=== PATIENT | male | born 1970 | race Caucasian/White ===

== ENCOUNTER 2016-11-21 09:55 | Observation (INO) | payer MEDICAID, OTHER ==
[2016-11-21] VITALS (9 sets, daily range): BP systolic 104–142; BP diastolic 63–81; PULSE 74–89; RESP 15–20; TEMP 98.3–98.8; O2SAT 96–99
[~2016-11-21] VITALS: Ht 175.3 cm; Wt 71.0 kg
[~2016-11-21 09:55] MED LIST: OXYC-103 PO; VICOTAB4 PO; Z.0.NO CURRENT MEDS
[2016-11-21] MEDS ORDERED: SODIUM CHLORIDE 0.9% FLUSH 10 ML FLUSH IVF PRN (10:45)
[2016-11-21] MEDS ORDERED: ASPIRIN 81 MG CHEW TAB PO ONE (10:45)
--- NOTE | 2016-11-21 10:50 | PD ---
HPI Chief Complaint: Chest Pain Time Seen by Provider: 10:39 Travel History International Travel<30 days: No Contact w/Intl Traveler<30days: No Traveled to known affect area: No History of Present Illness HPI 46-year-old male here for evaluation of chest pain. Patient reports one episode of chest pain about a week ago described as an ache, substernal/left- sided. He states the pain resolved on its own, then returned yesterday evening , waking him up from sleep. Pain has been constant since this time, is left- sided chest pain, described as sharp/ache, radiates up into his jaw/left neck as well as left arm. No modifying factors. Intermittent dyspnea. No hemoptysis. No history of cardiac disease. No family history of cardiac disease. He quit smoking cigarettes a couple years ago after smoking on and off for about 5-6 years. No illicit drug use. PFSH Past Medical History Blood Disorders: No Cancer: No Cardiovascular Problems: No Diabetes: No Endocrine: No Glaucoma: No Genitourinary: No Hepatitis: No Hiatal Hernia: No Hypertension: No Immune Disorder: No Musculoskeletal: No Neurologic: No Psychiatric: No Reproductive: No Respiratory: No Immunizations Current: No Thyroid Disease: No Tetanus Vaccination: > 5 Years Influenza Vaccination: No Past Surgical History Abdominal Surgery: No Cardiac Surgery: No Ear Surgery: No Endocrine Surgery: No Eye Surgery: Yes (LEFT EYE- METAL IN THE EYE) Genitourinary Surgery: No Gynecologic Surgery: No Oral Surgery: No Pacemaker: No Thoracic Surgery: No Other Surgery: Yes (LEFT ELBOW-REPAIR, L HAND SURGERY ) Social History Alcohol Use: Yes (OCCASSIONAL) Tobacco Use: No (QUIT 2 YEARS AGO ) Substance Use: No Allergies-Medications (Allergen,Severity, Reaction): Coded Allergies: No Known Allergies (Verified , 11/21/16) Reported Meds & Prescriptions Reported Meds & Active Scripts Active No Active Prescriptions or Reported Medications Review of Systems Except as stated in HPI: all other systems reviewed are Neg Physical Exam Narrative GENERAL: Well-developed, well-nourished, comfortable, no acute distress. SKIN: Focused skin assessment warm/dry. HEAD: Atraumatic. Normocephalic. EYES: Eye patch on left eye. ENT: No nasal bleeding or discharge. Mucous membranes pink and moist. NECK: Trachea midline. No JVD. CARDIOVASCULAR: Regular rate and rhythm. Distal pulses brisk and equal bilaterally. RESPIRATORY: No accessory muscle use. Clear to auscultation. Breath sounds equal bilaterally. GASTROINTESTINAL: Abdomen soft, non-tender, nondistended. MUSCULOSKELETAL: No clubbing. No cyanosis. No edema. NEUROLOGICAL: Awake and alert. No obvious cranial nerve deficits. Motor grossly within normal limits. Normal speech. PSYCHIATRIC: Appropriate mood and affect; insight and judgment normal. Data Data Last Documented VS Vital Signs Date Time Temp Pulse Resp B/P Pulse Ox O2 Delivery O2 Flow Rate FiO2 11/21/16 11:50 82 16 104/64 98 Room Air 11/21/16 09:57 98.8 Orders Electrocardiogram (11/21/16 ) Electrocardiogram (11/21/16 10:40) Basic Metabolic Panel (Bmp) (11/21/16 10:40) Ckmb (Isoenzyme) Profile (11/21/16 10:40) Complete Blood Count With Diff (11/21/16 10:40) D-Dimer (11/21/16 10:40) Magnesium (Mg) (11/21/16 10:40) Prothrombin Time / Inr (Pt) (11/21/16 10:40) Act Partial Throm Time (Ptt) (11/21/16 10:40) Troponin I (11/21/16 10:40) Chest, Single Ap (11/21/16 10:40) Ecg Monitoring (11/21/16 10:40) Bilateral Bp Monitoring (11/21/16 10:40) Iv Access Insert/Monitor (11/21/16 10:40) Oximetry (11/21/16 10:40) Aspirin Chew (Aspirin Chew) (11/21/16 10:45) Sodium Chloride 0.9% Flush (Ns Flush) (11/21/16 10:45) Nitroglycerin Sl (Nitrostat Sl) (11/21/16 10:45) Ct Pulmonary Angiogram (11/21/16 11:27) Iohexol 350 Inj (Omnipaque 350 Inj) (11/21/16 12:49) Labs Laboratory Tests Test 11/21/16 10:30 White Blood Count 4.8 TH/MM3 Red Blood Count 5.04 MIL/MM3 Hemoglobin 15.0 GM/DL Hematocrit 45.0 % Mean Corpuscular Volume 89.4 FL Mean Corpuscular Hemoglobin 29.7 PG Mean Corpuscular Hemoglobin 33.2 % Concent Red Cell Distribution Width 14.1 % Platelet Count 146 TH/MM3 Mean Platelet Volume 8.3 FL Neutrophils (%) (Auto) 76.0 % Lymphocytes (%) (Auto) 16.5 % Monocytes (%) (Auto) 7.1 % Eosinophils (%) (Auto) 0.0 % Basophils (%) (Auto) 0.4 % Neutrophils # (Auto) 3.6 TH/MM3 Lymphocytes # (Auto) 0.8 TH/MM3 Monocytes # (Auto) 0.3 TH/MM3 Eosinophils # (Auto) 0.0 TH/MM3 Basophils # (Auto) 0.0 TH/MM3 CBC Comment DIFF FINAL Differential Comment Prothrombin Time 12.6 SEC Prothromb Time International 1.1 RATIO Ratio Activated Partial 28.9 SEC Thromboplast Time D-Dimer Quantitative (PE/DVT) 1.32 MG/L FEU Sodium Level 138 MEQ/L Potassium Level 3.9 MEQ/L Chloride Level 103 MEQ/L Carbon Dioxide Level 25.4 MEQ/L Anion Gap 10 MEQ/L Blood Urea Nitrogen 18 MG/DL Creatinine 0.98 MG/DL Estimat Glomerular Filtration 83 ML/MIN Rate Random Glucose 98 MG/DL Calcium Level 8.4 MG/DL Magnesium Level 2.1 MG/DL Total Creatine Kinase 93 U/L Troponin I LESS THAN 0.02 NG/ML MDM Medical Decision Making Medical Screen Exam Complete: Yes Emergency Medical Condition: Yes Interpretation(s) EKG: Sinus, rate 75, normal axis, normal intervals, no acute ischemic abnormality. Differential Diagnosis ACS, pneumothorax, pericarditis, PE, pneumonia, musculoskeletal pain, dissection Narrative Course Initial vital signs show heart rate 83, blood pressure 113/75, pulse ox 97% on room air, oral temp of 98.8F. CBC shows WBC 4.8, hemoglobin 15, hematocrit 45, platelets 146, neutrophils 76%. BMP is unremarkable. Cardiac enzymes are negative. D-dimer slightly elevated at 1.32. Chest x-ray: Normal exam. Right sided cervical rib. CT pulmonary angiogram: CONCLUSION: 1. No evidence of pulmonary embolism. Patient was made aware of all findings. He is resting comfortably. Chest pain has resolved since receiving sublingual nitroglycerin. I believe the patient is a good candidate for further cardiac evaluation in the chest pain center. He is amenable to this plan. Diagnosis Primary Impression: Chest pain Qualified Code: R07.9 - Chest pain, unspecified type Admitting Information Admitting Physician Requests: Observation Scripts No Active Prescriptions or Reported Meds Martin Aggarwal MD November 21, 2016 10:50
[2016-11-21] MEDS: NITROGLYCERIN 0.4 MG SL 25 TABS/BTL SL SCH ×3 (10:55→11:36)
--- NOTE | 2016-11-21 10:55 | RADRPT ---
EXAM DATE/TIME: 11/21/2016 10:37 [facility] COMPARISON: No previous studies available for comparison. INDICATIONS : Chest pain MEDICAL HISTORY : None. SURGICAL HISTORY : None. ENCOUNTER: Initial ACUITY: 1 week PAIN SCORE: 4/10 LOCATION: Bilateral chest FINDINGS: A single view of the chest demonstrates the lungs to be symmetrically aerated without evidence of mas s, infiltrate or effusion. The cardiomediastinal contours are unremarkable. Osseous structures are intact. CONCLUSION: Normal examination. Right-sided cervical rib. Kye Casper MD on November 21, 2016 at 10:53 Board Certified Radiologist. This report was verified electronically.
[2016-11-21 11:05] LABS: AUTOMATED NEUTROPHIL # 3.6 TH/MM3 (1.8-7.7); BASOPHIL % 0.4 % (0.0-2.0); HEMO FLAGS DIFF FINAL; LYMPH % 16.5 % (9.0-44.0); LYMPHOCYTE # 0.8 TH/MM3 (1.0-4.8); MEAN CELL VOLUME 89.4 FL (80.0-100.0); MEAN CORPUSCULAR HEMOGLOBIN 29.7 PG (27.0-34.0); MEAN CORPUSCULAR HGB CONC 33.2 % (32.0-36.0); MONO % 7.1 % (0.0-8.0); PLATELET COUNT 146 TH/MM3 (150-450); RED BLOOD COUNT 5.04 MIL/MM3 (4.50-5.90); RED CELL DISTRIBUTION WIDTH 14.1 % (11.6-17.2); WHITE BLOOD COUNT 4.8 TH/MM3 (4.0-11.0)
[2016-11-21 11:16] LABS: ANION GAP 10 MEQ/L (5-15); BICARBONATE 25.4 MEQ/L (21.0-32.0); BLOOD UREA NITROGEN 18 MG/DL (7-18); CHLORIDE 103 MEQ/L (98-107); GLOMERULAR FILTRATION RATE 83 ML/MIN (>89); MAGNESIUM 2.1 MG/DL (1.5-2.5); POTASSIUM 3.9 MEQ/L (3.5-5.1); SODIUM (NA) 138 MEQ/L (136-145)
[2016-11-21 11:18] LABS: APTT (PATIENT) 28.9 SEC (24.3-30.1); INTERNATIONAL NORMALIZED RATIO 1.1 RATIO; PROTHROMBIN TIME - PATIENT 12.6 SEC (9.8-11.6)
[2016-11-21 11:22] LABS: CREATINE KINASE 93 U/L (39-308)
[2016-11-21] MEDS ORDERED: IOHEXOL 350 MG/ML 10 ML VIAL (for RAD DIAG) IV ONE (12:49)
--- NOTE | 2016-11-21 12:54 | RADRPT ---
EXAM DATE/TIME: 11/21/2016 12:31 [facility] COMPARISON: No previous studies available for comparison. INDICATIONS : Chest pain for one day. IV CONTRAST: 65 cc Omnipaque 350 (iohexol) IV RADIATION DOSE: 23.27 CTDIvol (mGy) MEDICAL HISTORY : None SURGICAL HISTORY : None. ENCOUNTER: Initial ACUITY: 1 day PAIN SCALE: 5/10 LOCATION: Left chest TECHNIQUE: Volumetric scanning of the chest was performed using a pulmonary embolism protocol MIP images were re constructed. Using automated exposure control and adjustment of the mA and/or kV according to patien t size, radiation dose was kept as low as reasonably achievable to obtain optimal diagnostic quality images. FINDINGS: PULMONARY ARTERIES: No filling defects are seen in the pulmonary arteries through the segmental level. LUNGS: There is no consolidation or pneumothorax . No concerning pulmonary nodule is visualized. PLEURAE: There is no pleural thickening or pleural effusion. MEDIASTINUM: There is good visualization of the great vessels of the middle mediastinum. No evidence of mediastin al or hilar adenopathy/mass. MUSCULOSKELETAL: Within normal limits for patient age. MISCELLANEOUS: The visualized upper abdominal organs demonstrate no acute abnormality. CONCLUSION: 1. No evidence of pulmonary embolism. Dion Gunderson MD on November 21, 2016 at 12:48 Board Certified Radiologist. This report was verified electronically.
[2016-11-21] MEDS ORDERED: SODIUM CHLOR 0.9% 1000 ML INJ 1,000 ML IV ONE (13:33)
[2016-11-21] MEDS ORDERED: SODIUM CHLORIDE 0.9% FLUSH 5 ML FLUSH IVF PRN (13:45)
[2016-11-21] MEDS ORDERED: ACETAMINOPHEN/HYDROcodone 325 MG/7.5 MG TAB PO PRN (13:45)
[2016-11-21] MEDS ORDERED: ONDANSETRON HCL 4 MG/2 ML VIAL IV PRN (14:00)
[2016-11-21] MEDS ORDERED: ACETAMINOPHEN 500 MG CPLT PO PRN (14:00)
--- NOTE | 2016-11-21 15:34 | HHI.HP ---
[facility] Primary Care Physician Shaka Garcia M.D. Chief Complaint Chest pain History of Present Illness This is a 46-year-old male that presents to ED to evaluate chest discomfort. He states that one week ago while he was at work he developed a central sharp pain lasts about 4 minutes. Like someone punched him in the chest. He had no other associated symptoms. Then yesterday morning he had a couple episodes of emesis. He states that he had just had some water and coffee earlier and that was in the emesis. He then began to have generalized myalgias, fatigue and continued to feel nauseous. His checked his temperature and was 102. He took Aleve and Tylenol and states that the fever finally broke around midnight last evening. About the same time he developed a sharp chest discomfort in the center of his chest that lasted about 8 hours. He states it resolved while he was in the ED. Worse level is a 4-6 out of 10. He found nothing to worsen the symptoms. Denies recent travel. Denies recent sick contacts. He did not get a flu vaccine this year. Review of Systems General: Patient has had fever and chills. Denies recent recent travel and denies sick contacts. HEENT: Patient denies headache, sore throat, difficulty swallowing. Cardiovascular: Has the chest discomfort as mentioned above. Denies sensation of heart beating rapidly or irregularly. No syncope. He was diaphoretic but also states that he had a fever. Respiratory: Denies shortness of breath or inspirational chest discomfort. Denies coughing wheezing or hemoptysis. GI: Patient was nauseous throughout the day and had a couple episodes of emesis earlier in the morning. Denies diarrhea, Diarrhea, abdominal pain, bloody stools. Musculoskeletal: Patient denies joint pain or edema. Denies calf pain or edema. He generalized myalgias. Neurovascular: He had generalized weakness. Patient denies numbness, tingling, weakness in extremities. Denies headache. Endocrine: Denies polyuria and polydipsia. Hematologic: Denies easy bruising. Skin: Denies rash or itching. Past Family Social History Allergies: Coded Allergies: No Known Allergies (Verified , 11/21/16) Past Medical History Denies hypertension, hyperlipidemia, diabetes, and CAD. Past Surgical History Noncontributory. Reported Medications Reported Meds & Active Scripts Active No Active Prescriptions or Reported Medications Active Ordered Medications Current Medications Medications (Trade) Dose Ordered Sig/Rai Route Start Time Stop Time Status Last Admin (NS Flush) 2 ml UNSCH PRN IVF 11/21/16 10:45 11/21/16 11:31 (NS Flush) 2 ml UNSCH PRN IVF 11/21/16 13:45 (NS Flush) 2 ml BID IVF 11/21/16 21:00 (Tylenol) 500 mg Q4H PRN PO 11/21/16 14:00 ([place] 7.5-325 Mg) 1 tab Q4H PRN PO 11/21/16 13:45 (Zofran Inj) 4 mg Q6H PRN IV 11/21/16 14:00 Family History Denies family history of CAD. Social History Patient quit smoking cigarettes 2 years ago but prior that he smoked a little less than one pack of cigarettes daily for approximately 6 years. Early has alcohol. Denies illicit drugs. He is and has a daughter. He works in the [employer] trade. Physical Exam Vital Signs Vital Signs Date Time Temp Pulse Resp B/P Pulse Ox O2 Delivery O2 Flow Rate FiO2 11/21/16 15:09 98.3 80 18 126/80 99 11/21/16 13:30 78 15 112/80 98 Room Air 11/21/16 12:30 74 16 105/69 98 Room Air 11/21/16 11:50 82 16 104/64 98 Room Air 11/21/16 11:37 89 112/65 11/21/16 11:33 87 18 114/63 96 Room Air 11/21/16 11:33 82 114/63 11/21/16 10:35 98 Room Air 11/21/16 10:31 78 18 142/81 97 Room Air 11/21/16 10:27 84 16 142/81 11/21/16 09:57 98.8 83 20 113/75 97 Physical Exam GENERAL: This is a well-nourished, well-developed patient, in no apparent distress. Patient speaks in clear complete sentences. Patient is pleasant. HEENT: Head is atraumatic and normocephalic. Neck is supple without lymphadenopathy and trachea is midline. No JVD or carotid bruits. CARDIOVASCULAR: Regular rate and rhythm without murmurs, gallops, or rubs. RESPIRATORY: Clear to auscultation. Breath sounds equal bilaterally. No wheezes , rales, or rhonchi. Chest wall is nontender. No use of accessory muscles. GASTROINTESTINAL: Abdomen is nontender, nondistended. Abdomen soft. No obvious pulsatile mass or bruit. No CVA tenderness. Strong femoral pulses bilaterally. Normal bowel sounds in all quadrants. MUSCULOSKELETAL: Patient is moving upper and lower extremities freely. No calf tenderness or edema, no Homans sign. Strong pulses in upper and lower extremities. NEUROLOGICAL: Patient is alert and oriented. Cranial nerves 2-12 are grossly intact. No focal deficits and speech is clear. SKIN: No rash and turgor is normal. Laboratory Laboratory Tests Test 11/21/16 10:30 White Blood Count 4.8 Red Blood Count 5.04 Hemoglobin 15.0 Hematocrit 45.0 Mean Corpuscular Volume 89.4 Mean Corpuscular Hemoglobin 29.7 Mean Corpuscular Hemoglobin 33.2 Concent Red Cell Distribution Width 14.1 Platelet Count 146 Mean Platelet Volume 8.3 Neutrophils (%) (Auto) 76.0 Lymphocytes (%) (Auto) 16.5 Monocytes (%) (Auto) 7.1 Eosinophils (%) (Auto) 0.0 Basophils (%) (Auto) 0.4 Neutrophils # (Auto) 3.6 Lymphocytes # (Auto) 0.8 Monocytes # (Auto) 0.3 Eosinophils # (Auto) 0.0 Basophils # (Auto) 0.0 CBC Comment DIFF FINAL Differential Comment Prothrombin Time 12.6 Prothromb Time International 1.1 Ratio Activated Partial 28.9 Thromboplast Time D-Dimer Quantitative (PE/DVT) 1.32 Sodium Level 138 Potassium Level 3.9 Chloride Level 103 Carbon Dioxide Level 25.4 Anion Gap 10 Blood Urea Nitrogen 18 Creatinine 0.98 Estimat Glomerular Filtration 83 Rate Random Glucose 98 Calcium Level 8.4 Magnesium Level 2.1 Total Creatine Kinase 93 Troponin I LESS THAN 0.02 Date/Time Procedure Status Source Growth 11/21/16 14:33 Influenza Types A,B Antigen (NANCY) Received Nasal Washing Pending Result Diagram: 11/21/16 1030 11/21/16 1030 Imaging Last [address] Angiography 11/21/16 1127 Signed Impressions: Service Date/Time: November 12:31 - CONCLUSION: 1. No evidence of pulmonary embolism. Dion Gunderson MD Chest X-Ray 11/21/16 1040 Signed Impressions: Service Date/Time: November 10:37 - CONCLUSION: Normal examination. Right-sided cervical rib. Kye Casper MD Course Initial EKG has sinus rhythm without significant ST segment depressions or elevations. Assessment and Plan Assessment and Plan * Chest pain: Patient's discomfort is atypical. He has been seen by Dr. Dion Sommers of cardiology in the chest pain center. He had a Demond protocol ETT that showed some ST changes and subsequently will not a nuclear stress test. He will be discharged home if stress test is nonischemic with instructions to follow-up with his primary care physician. Patient is also complaining of fever and myalgias. He was given IV hydration and are awaiting results of a lens a and B antigen test. Patient is stable at this time. He is agreeable to this plan. Issa Kaiser November 21, 2016 15:34
[2016-11-21] MEDS ORDERED: REGADENOSON INJ 0.4 MG/5 ML SYR ONE (15:40)
--- NOTE | 2016-11-21 17:17 | HHI.DCPOC ---
Discharge Care Plan Diagnosis: (1) Chest pain Goals to Promote Your Health * To prevent worsening of your condition and complications * To maintain your health at the optimal level Directions to Meet Your Goals Take your medications as prescribed Follow your dietary instruction Follow activity as directed Keep your appointments as scheduled Take your immunizations and boosters as scheduled If your symptoms worsen call your PCP, if no PCP go to Urgent Care Center or Emergency Room Smoking is Dangerous to Your Health. Avoid second hand smoke Call the 24-hour hour crisis hotline for domestic abuse at Issa Kaiser November 21, 2016 17:17
--- NOTE | 2016-11-21 17:35 | RADRPT ---
EXAM DATE/TIME: 11/21/2016 15:30 [facility] COMPARISON: No previous studies available for comparison. INDICATIONS : Left sided chest pain. Angina. DOSE: 27.2 mCi Tc99m Myoview at stress. 8.2 mCi Tc99m Myoview at rest. 0.4 mg Lexiscan STRESS SYMPTOMS: Dyspnea, headache, and abdomen pressure. EJECTION FRACTION: 64% MEDICAL HISTORY : None SURGICAL HISTORY : Total knee replacement, right. ENCOUNTER: Initial ACUITY: 1 day PAIN SCALE: 1/10 LOCATION: Left chest TECHNIQUE: The patient underwent pharmacologic stress with infusion of prescribed dose. Continuous ECG tracing was monitored during stress. Gated SPECT imaging was performed after stress and conventional SPECT i maging was performed at rest. The examination was performed on a SPECT/CT scanner, both attenuation and non-corrected datasets were reviewed. FINDINGS: DISTRIBUTION: The maximum perfused segment at stress is in the <mid anterolateral> wall. PERFUSION STUDY: The pattern of perfusion at stress is within normal limits. GATED STUDY: There is intact wall motion and thickening without hypokinetic or dyskinetic segments. CONCLUSION: Normal examination. RISK CATEGORY: Low (<1% Annual Mortality Rate) Kye Casper MD on November 21, 2016 at 17:32 Board Certified Radiologist. This report was verified electronically.
[2016-11-21] MEDS ORDERED: SODIUM CHLORIDE 0.9% FLUSH 5 ML FLUSH IVF SCH (21:00)
--- NOTE | 2016-11-22 19:41 | TR ---
Date Performed: 11/21/2016 Time Performed: 16:09:50 DOCTOR: Marianna Joyce DRUG LIST: CLINICAL HISTORY: REASON FOR TEST: REASON FOR ENDING: OBSERVATION: CONCLUSION: Lexiscan stress test was performed under standard four minute protocol. Radionucl[place] e was injected one minute prior to ending the test. No electrocardiographic abormalities were present to suggest ischemia. Nuclear imaging and interpretation are pending. COMMENTS:
--- NOTE | 2016-11-22 20:10 | TR ---
Date Performed: 11/21/2016 Time Performed: 14:08:32 DOCTOR: Marianna Joyce DRUG LIST: CLINICAL HISTORY: REASON FOR TEST: REASON FOR ENDING: OBSERVATION: CONCLUSION: VICKIE PROTOCOL. NO CP OR SOB. TEST STOPPED AFTER EXCEEDING GOAL HR SECONDARY TO LEG FATIGUE.Maximum QR=695 % Max HR Achieved=88.0% Maximum KF=266/68 Total Exercise Time=10:06 COMMENTS:
--- NOTE | 2016-11-22 20:11 | EKG ---
Date Performed: 11/21/2016 Time Performed: 10:26:11 PTAGE: 46 years EKG: Sinus rhythm NORMAL ECG NO PREVIOUS TRACING DOCTOR: Marianna Joyce Interpretating Date/Time 11/22/2016 20:09:45
== END 2016-11-21 18:54 | disposition home or self-care (01) ==
LOC: NEPD 09:55 → NEDA 13:05 → NEPGCP 14:43
PROVIDERS: ADMIT Internal Medicine Cardiovascular Disease; ATTEND Internal Medicine Cardiovascular Disease
DX: R07.89 Other chest pain (principal); R50.9 Fever, unspecified; Z87.891 Personal history of nicotine dependence; Z96.651 Presence of right artificial knee joint
CPT/HCPCS: 71010; 71275; 78452; 80048; 82550; 83735; 84484; 85025; 85379; 85610; 85730; 87804; 93005; 93017; 99285; A9502; G0378; J2785; J7030; Q9967